=== PATIENT | male | born 1960 | race Caucasian/White ===

== ENCOUNTER 2023-12-26 06:18 | Emergency (ER) | payer BC ==
[~2023-12-26] VITALS: Ht 190.5 cm; Wt 115.0 kg
[2023-12-26] VITALS (17 sets, daily range): BP systolic 106–144; BP diastolic 59–89
[2023-12-26] MEDS ORDERED: NITROGLYCERIN 2% OINT UD 1 GM/PAK TD ONE (06:50)
[2023-12-26] MEDS ORDERED: ASPIRIN 81 MG/TAB PO ONE (06:50)
[2023-12-26 07:12] LABS: BASO% 0.1 % (0-3); HEMATOCRIT 44.5 % (39.0-50.0); HEMOGLOBIN 14.9 g/dl (14.0-18.0); IMMATURE GRANULOCYTES 0.1 % (0.0-5.0); LYMPH% 13.4 % (15-41); MEAN CORPUSCULAR HGB 30.5 pG CALC (26.0-32.0); MEAN CORPUSCULAR HGB CONC 33.5 g/dL CAL (32.0-36.0); MONO% 7.4 % (2-13); NEUT# 10.51 thou/uL (1.82-7.42); RED BLOOD COUNT 4.89 mill/uL (4.70-6.10); RED CELL DISTRI WIDTH 13.5 % (11.5-15.5)
[2023-12-26 07:33] LABS: ALKALINE PHOSPHATASE 94 u/l (38-126); ANION GAP 12 (6-22 (CALC)); BILIRUBIN, TOTAL 0.5 mg/dL (0.2-1.3); BUN 23 mg/dL (8-23); BUN/CREATININE RATIO 23 (12-20 (CALC)); CARBON DIOXIDE 22 mmol/l (22-30); CHLORIDE 107 mmol/l (95-108); GFR FOR AFR.AMER. > 60 ML/MIN (>=60 (CALC)); GFR OTHER RACES > 60 ML/MIN (>=60 (CALC)); POTASSIUM 3.8 mmol/l (3.5-5.1); SGOT/AST 44 u/l (19-48); SODIUM 138 mmol/l (137-146)
[2023-12-26 07:34] LABS: D-DIMER 0.65 mg/L (0.19-0.60)
[2023-12-26 07:59] LABS: INTERNATIONAL NORMALIZED RATIO 1.1 RATIO (0.7-1.3); PROTHROMBIN TIME 10.4 SECONDS (9.0-12.5)
[2023-12-26] MEDS ORDERED: SODIUM CHLORIDE 0.9% 1,000 ML IV ONE (10:40)
[2023-12-26] MEDS ORDERED: methylPREDNISolone Sod Succ 40 MG/ML SDV IM ONE (11:10)
[2023-12-26] MEDS ORDERED: IPRATROPIUM-Albuterol 0.5MG-2.5MG/3 ML NEB ONE (11:15)
[2023-12-26] MEDS ORDERED: AZITHROMYCIN 250 MG/TAB PO ONE (11:15)
[2023-12-26 11:17] LABS: URINE BILIRUBIN - DIPSTICK Negative (NEGATIVE); URINE BLOOD DIPSTICK Negative (NEGATIVE); URINE GLUCOSE - DIPSTICK Negative (NEGATIVE); URINE KETONE Negative (NEGATIVE); URINE LEUK ESTERASE Negative (NEGATIVE); URINE NITRITE - DIPSTICK Negative (Negative); URINE PROTEIN - DIPSTICK Negative (NEG-TRACE); URINE UROBILINOGEN - DIPSTICK 0.2 E.U./dL (0.2)
[2023-12-26 11:26] LABS: URINE COLOR Yellow
[2023-12-26] MEDS ORDERED: SYMBICORT 80-4.5MCG PO (14:26)
== END 2023-12-26 14:54 | disposition home or self-care (01) | DRG 192 ==
LOC: ED 06:18
PROVIDERS: Emergency Medicine
DX: J43.9 Emphysema, unspecified (principal); E78.5 Hyperlipidemia, unspecified
CPT/HCPCS: Q9967